=== PATIENT | female | born 1990 | race Caucasian/White ===

== ENCOUNTER 2016-12-04 10:17 | Inpatient (IN) | payer BC ==
[2016-12-04] MEDS ORDERED: Zolpidem 5 MG Tab PO PRN (12:40)
[2016-12-04] MEDS ORDERED: Acetaminophen 325 MG Tab PO PRN (12:40)
[2016-12-04] MEDS ORDERED: Sodium Chloride 0.9% 10 ML Syringe FLUSH PRN (12:40)
[2016-12-04] MEDS ORDERED: Lactated Ringers 500 ML IV ONE (12:43)
[2016-12-04] MEDS ORDERED: Methylergonovine 0.2 MG/1 ML Amp IM PRN (12:43)
[2016-12-04] MEDS ORDERED: Misoprostol 400 MCG (4 X 100 MCG TAB) RECTAL PRN (12:43)
[2016-12-04] MEDS ORDERED: Lidocaine 1% 30 ML SDV INJECT PRN (12:43)
[2016-12-04] MEDS ORDERED: Carboprost Tromethamine 250 MCG/1 ML Amp IM PRN (12:43)
[2016-12-04] MEDS: Misoprostol 25 MCG (1/4 of 100 MCG) Tab VAG PRN ×2 (13:09→17:51)
[2016-12-04] MEDS ORDERED: hydrOXYzine HCl 25 MG Tab PO ONE (21:13)
[2016-12-04] MEDS: Sertraline 50 MG Tab PO SCH (22:35)
[2016-12-05] MEDS: Lactated Ringers 1,000 ML IV SCH ×3 (08:22→21:38)
[2016-12-05] MEDS: Oxytocin/Normal Saline 30 UNIT/500 ML BAG IV SCH (08:26)
[2016-12-05] MEDS: fentaNYL 100 MCG/2 ML SDV IVPUSH PRN (12:42)
--- NOTE | 2016-12-05 13:48 | PN ---
DATE: 12/05/2016 SUBJECTIVE: A 26-year-old 1, para 0, currently at 40 and 5/7th weeks gestation in for induction of labor because of postdates, received 2 doses of Cytotec, but we could not place the third because of the frequency of contractions, so low-dose Pitocin was started and has been at 6 for about 3 hours. The patient is reporting that the pain with contractions is significantly worse and requesting something for pain. OBJECTIVE: Vital signs: Currently, stable. She is afebrile. Baseline heart rate 140 beats per minute. Moderate skku-qi-yuzj variability. Accelerations noted. [place] showing contractions about every 2.5 minutes. Cervix examined 3+ cm dilated, 90% effaced, -2 station. Bag of water remains intact, and she is doing well. ASSESSMENT: 1. A 40 and 5/7th weeks gestation inducing labor. 2. Anxiety with panic attacks. 3. Hyperlipidemia. 4. History of menorrhagia. 5. Pityriasis versicolor. 6. Severe needle phobia. 7. Rh-negative status. 8. Bacterial vaginosis treated in the first trimester. PLAN: At this time, the patient will be given 50 mcg of fentanyl for pain management and we will see how that goes. Next dose may also be 50 or possibly 100 depending on progress and pain at that time. We will provide intrathecal when appropriate. The patient's questions have been answered. [facility] /[id number]
[2016-12-05] MEDS ORDERED: Nalbuphine 10 MG/1 ML Vial IM ONE (14:31)
[2016-12-05] MEDS ORDERED: fentaNYL 100 MCG/2 ML SDV ITHECAL ONE (16:21)
[2016-12-05] MEDS ORDERED: Sertraline 50 MG Tab PO SCH (21:00)
[2016-12-05] MEDS: Ondansetron 4 MG/2 ML SDV IV PRN (22:00)
[2016-12-05] MEDS ORDERED: ePHEDrine 50 MG/ML SDV IVPUSH ONE ×2 (22:35→22:41)
[2016-12-05] MEDS ORDERED: Oxytocin/Normal Saline 30 UNIT/500 ML BAG IV SCH (22:45)
--- NOTE | 2016-12-05 23:26 | PCM.SN ---
- Free Text/Narrative Note: Called in to provide labor analgesia for this patient. Intrathecal placed after labs and VS reviewed. With patient in sitting position, sterile prep/ drape. Skin wheal with 1% lido at L3-4. LP X 2 at L3-4 with 24gauge pencan spinal needle. Positive CSF, no heme, no paresthesia. Then .6mg mpf hyperbaric 0.75% spinal marcaine, plus 10mcg fentanyl, plus 10mcg sufena intrathecal - mixed with 1.8ml preservative free NS. Block/analgesia to around T-10, pt stated she was comfortable with subsequent contractions. B/P dropped after placement, and FHT dropped, so patient placed in ISMAEL, and fluid bolus given and then 10mg ephedrine iv given with fluid bolus. FHT and B/ P responded, but still slightly low (SB/P around 80, FHT's in low 100's), so 5 more MG of ephedrine given. Pt SBP then increased to around 100, and FHT's increased to around 130's.
--- NOTE | 2016-12-06 00:24 | PN ---
DATE: 12/06/2016 SUBJECTIVE: The patient is currently doing well and comfortable with her intrathecal resting on her side at this time and denies any acute concerns. She has not had much in the way of leakage of fluid. Nurses report they checked her after her intrathecal and she has progressed and were thinking that she was 8 to 9 cm; however, admits that this was on her side, and since we have a nurse is still on orientation, the patient and nurse were both agreeable to verification check. OBJECTIVE: Vital Signs: Blood pressure has been elevated in the 140s and even 150s systolic for couple of readings and gradually improved at this time. Pulse of 89. O2 saturations 100% on room air. Cervix re-examined, and it is about 90% effaced, 7 to 8 cm dilated, bulging bag of water intact. Bloody show noted with some mild stretching of the cervix and artificial rupture of membranes performed with return of copious amounts of clear fluid. Amniotomy was performed after discussion with the patient and her , and she was agreeable to the procedure. ASSESSMENT: 1, para 0, currently at 40 and 5/7th weeks' gestation admitted for induction of labor for post-dates . Currently in active labor being augmented with Pitocin at this time after induction of the Cytotec status post artificial rupture and doing well. PLAN: Continue active labor management and anticipate vaginal delivery. [facility] /[id number] MTDD
[2016-12-06] MEDS: Sertraline 50 MG Tab PO SCH (01:57)
[2016-12-06] MEDS: fentaNYL 100 MCG/2 ML SDV IVPUSH PRN (03:03)
--- NOTE | 2016-12-06 03:18 | PN ---
DATE: 12/04/2016 SUBJECTIVE: Currently 40-6/7 weeks postdates , 1, para 0. Started off with induction and Cytotec, followed by Pitocin. She made it to 5+ cm dilated and intrathecal was provided. She was rechecked after the intrathecal and was felt to be 7-8 cm when checked on her side, and reporting now that she is starting to feel her contractions again, still has a good effect at the perineum. Nurses checked her again hoping that she was complete and she is actually unchanged. OBJECTIVE: The patient reports feeling the contractions again and also complaining mostly of low back pain, not feeling much more in the way of increased pelvic pressure. Certainly not feel any urge to push. heart tones are tracing with a baseline of about 160, moderate byek-dt-fmeu variability. Some accelerations were noted. The Birney was tracing contractions about every 2 minutes. Cervix does remain at 7 cm dilated. Baby's head is at 0 to -1 and the baby's head could be felt rotating quite easily and is not as well applied to the cervix as I would like to see it. Bladder has not been emptied since before her intrathecal. Discussed indications, risks, and benefits of IUPC. After questions answered IUPC placed without difficulty. No complications. ASSESSMENT: A 40-6/7 weeks' intrauterine , not making progress beyond 7 cm at this time. Also starting to develop baseline tachycardia and IUPC now placed. PLAN: At this time, we will empty her bladder and we will check her MVUs and see if she is a candidate to continue with labor or if we need to proceed with primary low transverse section. I did verbally consent the patient for , and I had also discussed placement of the IUPC with her before the procedure was performed. We will be watching carefully and adjusting the plan as needed. The patient's questions were answered, and when we did have the discussion regarding , her mother and were also present in the room. [facility] /[id number] MTDD
[2016-12-06] MEDS: Ondansetron 4 MG/2 ML SDV IV PRN (03:21)
[2016-12-06] MEDS: Lactated Ringers 1,000 ML IV SCH ×2 (03:25→04:13)
[2016-12-06] MEDS ORDERED: fentaNYL 100 MCG/2 ML SDV ONE ×2 (03:46→16:18)
[2016-12-06] MEDS ORDERED: Morphine PF 5 MG/10 ML SDV ONE ×2 (03:47→16:18)
[2016-12-06] MEDS ORDERED: Ondansetron 4 MG/2 ML SDV ONE (03:47)
[2016-12-06] MEDS ORDERED: Ketorolac 30 MG/ML SDV ONE (03:48)
[2016-12-06] MEDS ORDERED: Phenylephrine 1% 10 MG/ML SDV ONE ×3 (03:48→03:51)
[2016-12-06] MEDS ORDERED: ePHEDrine 50 MG/ML SDV ONE (03:48)
[2016-12-06] MEDS ORDERED: ceFAZolin 2 GM in Premix Bag 1 BAG IV ONE (03:50)
[2016-12-06] MEDS ORDERED: Citric Acid/Sodium Citrate Solution 30 ML Cup PO ONE (03:50)
[2016-12-06] MEDS ORDERED: Oxytocin/Normal Saline 30 UNIT/500 ML BAG ONE ×2 (04:01→04:12)
[2016-12-06] MEDS ORDERED: Oxytocin 10 Units/1 ML SDV ONE ×2 (04:12→04:13)
--- NOTE | 2016-12-06 04:15 | PN ---
DATE: 12/06/2016 SUBJECTIVE: The patient is very uncomfortable with her contractions at this point, also reporting increased pelvic pressure and perineal pain, requesting more for pain medications. Nurses called me to Labor and Delivery because of a deceleration of the baby's heart rate down from the baseline of the 160s with heart rate coming down to the 120s but maintaining good variability. IU is showing MVU's currently at around 200. OBJECTIVE: Vital signs have been good. However, the patient now has a temperature of approximately 101 and also having some intermittent late decelerations. I rechecked the patient's cervix and it is still the same without any significant change. Baby's head has a lot of movement. We were in the process of planning a second intrathecal. However, with the decelerations, tachycardia, maternal temperature, and no significant change and now achieving adequate MVU's, it is clear that this is not going to result in successful vaginal delivery. Therefore, we will need to deliver by section. With the patient's mother and in the room earlier this morning, I had discussed the indications, risks, benefits, and alternatives of primary low transverse section including but not limited to, risk of bleeding to the point of requiring a blood transfusion as well as its inherent risks, including, but not limited to, transfusion reaction, contraction of blood-borne diseases such as HIV or hepatitis C, and other such complications. Also, discussed risk of infection and plan for preoperative antibiotics, risk of injury to any internal organs and adjacent structures including, but not limited to, large blood vessels, nerves, veins, muscles, fallopian tubes, ovaries, intestines, bladder, uterus, any potential injury to the baby, potential for complications which would require transfer to a tertiary level of care, also remote risk of . They had her questions answered and are going to proceed at this time. ASSESSMENT: 1. A 40-6/7th weeks intrauterine , in active labor after induction. 2. Failure to progress at 7 cm dilated. 3. Maternal fever, new onset. 4. Intermittent late decelerations. PLAN: As outlined above, we are planning to proceed with primary low transverse section. [facility] /[id number]
[2016-12-06] MEDS ORDERED: Bupivacaine 0.25% 10 ML SDV INJECT ONE (06:00)
[2016-12-06] MEDS ORDERED: Bupivacaine 0.25% 10 ML SDV ONE (06:03)
[2016-12-06] MEDS ORDERED: Naloxone 2 MG/2 ML Syringe IVPUSH PRN (06:14)
[2016-12-06] MEDS ORDERED: Docusate Sodium 100 MG Cap PO PRN (06:14)
[2016-12-06] MEDS ORDERED: Acetaminophen/oxyCODONE 325-5 MG Tab PO PRN (06:14)
[2016-12-06] MEDS ORDERED: Lactated Ringers 1,000 ML IV SCH (06:15)
[2016-12-06] MEDS: Oxytocin/Normal Saline 30 UNIT/500 ML BAG IV SCH (06:39)
[2016-12-06] MEDS ORDERED: Prenatal Multivitamin with Calcium/Folic Acid/Iron Tab PO SCH (09:00)
--- NOTE | 2016-12-06 12:01 | OR ---
DATE: 12/06/2016 PREOPERATIVE DIAGNOSES: 1. A 40 and 6/7th weeks intrauterine based on LMP and 20-week ultrasound. 2. 1, para 0. 3. Blood type O negative. 4. Rubella immune. 5. Group B strep negative. 6. Abnormal 1-hour glucose tolerance test, and normal 3 hour. 7. Post-dates . 8. Anxiety with panic. 9. Pityriasis versicolor. 10.Bacterial vaginosis, treated in first trimester. 11.Severe needle phobia. 12.Hyperlipidemia. 13.Metrorrhagia. 14.Intermittent heart rate decelerations. 15.Arrest of dilatation despite adequate MVU. POSTPROCEDURE DIAGNOSES: 1. A 40 and 6/7th weeks intrauterine based on LMP and 20-week ultrasound. 2. 1, now para 1. 3. Blood type O negative. 4. Rubella immune. 5. Group B strep negative. 6. Abnormal 1-hour glucose tolerance test, and normal 3 hour. 7. Post-dates . 8. Anxiety with panic. 9. Pityriasis versicolor. 10.Bacterial vaginosis, treated in first trimester. 11.Severe needle phobia. 12.Hyperlipidemia. 13.Metrorrhagia. 14.Intermittent heart rate decelerations. 15.Arrest of dilation despite adequate MVUs. 16.Status post primary low transverse section without complications. PROCEDURE PERFORMED: Primary low transverse section with double-layer closure. The patient is a candidate. BRIEF HISTORY: The patient is a 26-year-old, admitted to the hospital on 12/04/2016 for induction of labor which was carried out successfully with Cytotec for cervical ripening followed by a low-dose Pitocin initiated as necessary to continue with labor. She did quite well, and had an intrathecal at 5 cm and at 2 hours had started to feel more pain, was checked and she was 7 cm. Intrauterine pressure catheter was placed, two hours later, her cervix remained unchanged. We were starting to see a little bit of heart rate decelerations and IUPC was measuring adequate MVU. Decided at that time that she had arrest of stage I, and needed to proceed with primary low transverse section. After consent was obtained this was carried out with details as below. Her labor course was uncomplicated as was her . See admission history and physical and progress notes for full details. CONSENT: Discussed with the patient, her , and mother indications risks, benefits, and alternatives of primary low transverse section for safe delivery of the baby. Discussed risk of blood transfusion as well as its inherent risks, including possible transfusion reaction, contraction of blood- borne diseases such as hepatitis C, or HIV. Discussed risk of infection, plan for preoperative antibiotics, risk of injury to any internal organs and adjacent structures including, but not limited to, large blood vessels, nerves, veins, vessels, muscles, intestines, uterus, bladder, fallopian tubes, ovaries, and even potential injury to the baby, also potential for complications that would require mother and/or baby to be transferred to a tertiary center and even remote risk of . They agreed to proceed and appropriate consent form was signed and is in the chart. SURGEON: Dr. Edna Vaughn. FURNACE CHARGING MACHINE OPERATOR: Dr. Chon Hendrickson. DETAILS: The patient was brought down to the operating room and spinal anesthesia was obtained with some difficulty. While in the room I witnessed at least 4 attempts to gain acces to the appropriate space. She was then laid supine and appropriately prepped and draped in sterile fashion. She was still able to move her feet however, skin was tested and we had adequate anesthesia, so Pfannenstiel skin incision was made with scalpel at 05:38 a.m. and carried down with cautery and blunt traction to the level of the fascia. The fascia was incised in the midline with Bovie cautery and extended that incision bilaterally with Morfin scissors. Rectus muscles were in the midline with blunt finger dissection and peritoneal cavity entered with blunt finger dissection and traction applied to open up the space. Jeremi O retractor was then placed and appropriate location for low transverse uterine incision determined and uterine incision made at 05:43 a.m. with scalpel until there were just a few cell layers left which were then penetrated with blunt finger penetration. Hysterotomy site opened with Rosen method and infant was noted to be face presenting through the hysterotomy site, OP position. 's head was brought up to the hysterotomy site and baby delivered gently there after. The baby's delivery time was 05:44 a.m. Infant's mouth and nose were bulb suctioned. Three-vessel umbilical cord was doubly clamped and cut and baby taken to the warmer for further evaluation. Cord blood sample was then obtained and placenta delivered by gentle cord traction and concomitant uterine massage at 05:47 a.m. The uterus was cleared of all clots and debris with dry lap sponge. Hysterotomy site closed with 0 Vicryl in a running, continuous fashion and then a second layer of 0 Vicryl with an imbricating fashion was then placed. Excellent hemostasis was noted. Jeremi O was then removed and pericolic gutters were cleared of all clots and debris. Hysterotomy site reinspected and remained hemostatic. The peritoneal layer was closed with a running stitch of 0 Vicryl which was available. At that time, I was called away to attend to the baby in the nursery and Dr. Hendrickson assumed care of the case. He has reported off to me that he irrigated that next layer and then closed the fascia using 2 individual stitches of 1-0 Vicryl, one running stitch on the right side, and one running stitch on the left side for additional reinforcement. He then copiously irrigated the subcutaneous tissues and suctioned out any excess fluid and then reapproximated the subcutaneous with 3-0 chromic suture. He then injected the subcutaneous tissues with 20 mL of 0.25% Marcaine and closed the skin with yadiel. The patient tolerated the procedure well. There were no complications and she will be taken to the PACU for recovery. FLUIDS: 600 mL of lactated Ringer's, and 400 mL of normal saline with Pitocin. ESTIMATED BLOOD LOSS: 600 mL. URINE OUTPUT: 250 mL of clear yellow urine. FINDINGS: Viable male infant, weighing 8 pounds, 12 ounces, 3975 g. Head and chest circumference each 14.5 inches. Baby's scores were 9, 6, and 9. Baby needed to be taken to the nursery for further resuscitative efforts because of lack of sufficient breathing. Heart rate and all other exam findings remained normal, and the lungs were clear. Ultimately baby will be transferred to the Intensive Care nursery. [facility] /[id number] MIREYA
[2016-12-06] MEDS: Ketorolac 30 MG/ML SDV IVPUSH SCH ×2 (13:57→20:09)
[2016-12-06] MEDS: Ferrous Sulfate 325 MG Tab PO SCH ×3 (13:57→20:57)
[2016-12-06] MEDS: Prenatal Multivitamin with Calcium/Folic Acid/Iron Tab PO SCH (13:57)
[2016-12-06] MEDS ORDERED: fentaNYL 100 MCG/2 ML SDV ITHECAL ONE (14:22)
[2016-12-06] MEDS ORDERED: Oxytocin/Normal Saline 30 UNIT/500 ML BAG IV ONE (16:15)
[2016-12-06] MEDS ORDERED: ePHEDrine 50 MG/ML SDV IV ONE (16:18)
[2016-12-06] MEDS ORDERED: Phenylephrine 1% 10 MG/ML SDV IV ONE (16:18)
[2016-12-06] MEDS ORDERED: Ondansetron 4 MG/2 ML SDV IV ONE (16:18)
[2016-12-06] MEDS ORDERED: Ketorolac 30 MG/ML SDV IVPUSH ONE (16:18)
[2016-12-06] MEDS: Acetaminophen/oxyCODONE 325-5 MG Tab PO PRN (16:47)
[2016-12-06] MEDS: Simethicone 80 MG Tab.Chew PO PRN (20:15)
[2016-12-07] MEDS: Sertraline 50 MG Tab PO SCH (00:07)
[2016-12-07] MEDS: Simethicone 80 MG Tab.Chew PO PRN ×4 (00:11→18:08)
[2016-12-07] MEDS: Acetaminophen/oxyCODONE 325-5 MG Tab PO PRN ×5 (00:11→18:07)
[2016-12-07] MEDS: Ketorolac 30 MG/ML SDV IVPUSH SCH (02:12)
[2016-12-07] MEDS: Ferrous Sulfate 325 MG Tab PO SCH (09:27)
[2016-12-07] MEDS: Prenatal Multivitamin with Calcium/Folic Acid/Iron Tab PO SCH (09:27)
[2016-12-07 09:41] VITALS: BP 120/58
[2016-12-07] MEDS: Ibuprofen 800 MG Tab PO PRN ×2 (10:08→18:07)
--- NOTE | 2016-12-07 14:32 | DISCH ---
DATE: 12/07/2016 SUBJECTIVE: The patient was seen on 12/07/2016 at [facility]. The patient is postoperative day #1 from a primary for failure to progress and non-reassuring heart tones. The patient is doing well. She is already eating, voiding, and ambulating. The patient's is in the NICU in [place]. OBJECTIVE: Vital Signs: The patient is afebrile, heart rate 69 to 92, blood pressure 106 to 126 over 52 to 72, and respiratory rate 16 to 20. Abdomen: Benign. Extremities: No tenderness. No edema. The patient is O negative. Her baby is also Rh negative. The patient is rubella immune. The patient's hemoglobin prior to her was 12.6, this morning is 10.5; white count good at 13.4, and platelets are 204. She will remove her bandage in the shower later this morning. ASSESSMENT AND PLAN: Postoperative day #1, status post primary low-transverse C- section. The patient is recovering very well from her . I did explain to the patient that if she has met all criteria and is stable by this evening, we might discharge her, so she could go to [place] to be with her infant. [facility] /[id number]
--- NOTE | 2016-12-07 17:15 | PCM.SN ---
- Free Text/Narrative Note: Post Anesthesia Note: Post op day 1, s/p C/S. Pt with minor c/o back irritation/pain from spinal placement. Otherwise, no c/o pain, no c/o PDPH. Suzie p.o.'s well, no c/o PONV. VSS; Temp 36.8 C, HR 92, 120/58, 98%, RR 16. No post anesthesia complications noted.
== END 2016-12-07 19:45 | disposition home or self-care (01) | DRG 540 ==
LOC: DL.OB 10:17 → DL.MS 12-06 04:00 → OBSVTOIN 12-06 05:44 → EDSTATUS 12-15 10:13
PROVIDERS: ADMIT Family Medicine; ATTEND Family Medicine
PROC: 10907ZC Drainage of Amniotic Fluid, Therapeutic from Products of Conception, Via Natural or Artificial Opening (ICD-10-PCS; principal; 2016-12-06)
PROC: 3E033VJ Introduction of Other Hormone into Peripheral Vein, Percutaneous Approach (ICD-10-PCS; principal; 2016-12-06)
PROC: 10D00Z1 Extraction of Products of Conception, Low, Open Approach (ICD-10-PCS; principal; 2016-12-06)
PROC: 3E0P7GC Introduction of Other Therapeutic Substance into Female Reproductive, Via Natural or Artificial Opening (ICD-10-PCS; 2016-12-06)
DX: O62.0 Primary inadequate contractions (principal); O76 Abnormality in fetal heart rate and rhythm complicating labor and delivery; O75.2 Pyrexia during labor, not elsewhere classified; O48.0 Post-term pregnancy; Z3A.40 40 weeks gestation of pregnancy; Z37.0 Single live birth; F41.9 Anxiety disorder, unspecified; F41.0 Panic disorder [episodic paroxysmal anxiety]; B36.0 Pityriasis versicolor
CPT/HCPCS: 36415; 59025; 85027; 86850; 86900; 86901; A9270-GY; J0690; J1885; J2274; J2300; J2370; J2405; J2590; J3010; J7120

== ENCOUNTER 2018-11-27 05:55 | Inpatient (IN) | payer BC ==
[2018-11-27] MEDS ORDERED: Lactated Ringers 1,000 ML IV SCH ×2 (06:00→09:37)
[2018-11-27] MEDS ORDERED: Oxytocin/Normal Saline 30 UNIT/500 ML BAG IV SCH (06:00)
[2018-11-27] MEDS ORDERED: ceFAZolin 2 GM in Premix Bag 1 BAG IV ONE (06:00)
[2018-11-27] MEDS ORDERED: Tranexamic Acid 1,000 MG in Sodium Chloride 0.9% 100 ML IV PRN ×2 (06:00→09:37)
[2018-11-27] MEDS ORDERED: Citric Acid/Sodium Citrate Solution 30 ML Cup PO ONE (06:00)
[2018-11-27] MEDS ORDERED: Sodium Chloride 0.9% 10 ML Syringe FLUSH PRN (06:00)
[2018-11-27] MEDS: Lactated Ringers 1,000 ML IV SCH ×2 (06:21→07:25)
[2018-11-27] MEDS ORDERED: Oxytocin/Normal Saline 60 UNIT/1,000 ML BAG ONE (06:55)
[2018-11-27] MEDS ORDERED: hydrOXYzine HCl 25 MG Tab PO STA (07:26)
[2018-11-27] MEDS ORDERED: Carboprost Tromethamine 250 MCG/1 ML Amp IM ONE (09:37)
[2018-11-27] MEDS ORDERED: Acetaminophen/oxyCODONE 325-5 MG Tab PO PRN ×2 (09:37→10:30)
[2018-11-27] MEDS ORDERED: Methylergonovine 0.2 MG/1 ML Amp IM PRN (09:37)
[2018-11-27] MEDS ORDERED: ePHEDrine 50 MG/ML SDV IVPUSH PRN (09:37)
[2018-11-27] MEDS ORDERED: Acetaminophen 325 MG Tab PO PRN (09:37)
[2018-11-27] MEDS ORDERED: diphenhydrAMINE 50 MG/ML SDV IVPUSH PRN (09:37)
[2018-11-27] MEDS ORDERED: Ondansetron 4 MG/2 ML SDV IV PRN (09:37)
[2018-11-27] MEDS ORDERED: Misoprostol 400 MCG (4 X 100 MCG TAB) RECTAL PRN (09:37)
[2018-11-27] MEDS ORDERED: Naloxone 2 MG/2 ML Syringe IVPUSH PRN (09:37)
[2018-11-27] MEDS ORDERED: Morphine PF 1 MG/ML Amp ONE (13:14)
[2018-11-27] MEDS ORDERED: ePHEDrine 50 MG/ML SDV IV ONE (13:14)
[2018-11-27] MEDS ORDERED: Ondansetron 4 MG/2 ML SDV IV ONE (13:14)
[2018-11-27] MEDS ORDERED: Dexamethasone 4 MG/ML SDV IV ONE (13:14)
[2018-11-27] MEDS ORDERED: Lactated Ringers 1,000 ML IV ONE (13:14)
[2018-11-27] MEDS ORDERED: Oxytocin/Normal Saline 30 UNIT/500 ML BAG IV ONE (13:17)
[2018-11-27] MEDS: Simethicone 80 MG Tab.Chew PO SCH ×3 (14:30→20:38)
[2018-11-27] MEDS ORDERED: Ketorolac 30 MG/ML SDV IVPUSH SCH (14:30)
[2018-11-27] MEDS: Ketorolac 30 MG/ML SDV IM SCH ×2 (14:33→20:39)
[2018-11-27] MEDS: busPIRone 5 MG Tab PO SCH (20:38)
[2018-11-27] MEDS: Sertraline 50 MG Tab PO SCH (20:38)
[2018-11-27] MEDS: Docusate Sodium 100 MG Cap PO PRN (20:38)
[2018-11-28] MEDS: Ketorolac 30 MG/ML SDV IM SCH (04:03)
[2018-11-28] MEDS: Simethicone 80 MG Tab.Chew PO SCH ×5 (08:04→21:18)
[2018-11-28] MEDS: busPIRone 5 MG Tab PO SCH ×2 (08:04→21:18)
[2018-11-28] MEDS: Prenatal Multivitamin with Calcium/Folic Acid/Iron Tab PO SCH (08:05)
[2018-11-28] MEDS: Docusate Sodium 100 MG Cap PO PRN ×2 (08:09→21:18)
--- NOTE | 2018-11-28 09:49 | PCM.PNPP ---
- General Info Date of Service: 11/28/18 (PPD/POD # 1 S/ P Repeat LTC/S) Functional Status: Reports: Pain Controlled, Tolerating Diet, Ambulating, Urinating - Review of Systems General: Reports: No Symptoms HEENT: Reports: No Symptoms Pulmonary: Reports: No Symptoms Cardiovascular: Reports: No Symptoms Gastrointestinal: Reports: No Symptoms Genitourinary: Reports: No Symptoms Musculoskeletal: Reports: No Symptoms Skin: Reports: No Symptoms Neurological: Reports: No Symptoms Psychiatric: Reports: No Symptoms - General Info Date of Service: 11/28/18 (PPD/POD # 1 S/P Repeat LTC/S) - Patient Data Vital Signs - Most Recent: Last Vital Signs Temp 97.9 F 11/28/18 04:00 Pulse 78 11/28/18 04:00 Resp 16 11/28/18 04:00 BP 121/63 11/28/18 04:00 Pulse Ox 95 11/27/18 09:47 Weight - Most Recent: 252 lb I&O - Last 24 Hours: Intake & Output 11/27/18 11/28/18 11/28/18 22:59 06:59 14:59 Intake Total 580 1280 Output Total 5453 294 0681 Balance -1040 -900 -70 Lab Results - Last 24 Hours: Laboratory Results - last 24 hr 11/28/18 Range/Units 06:00 WBC 11.9 H (5.0-10.0) 10^3/uL RBC 3.71 L (4.2-5.4) 10^6/uL Hgb 10.3 L D (12.0-16.0) g/dL Hct 32.2 L (37.0-47.0) % MCV 86.8 (80-100) fL MCH 27.8 (27.0-34.0) pg MCHC 32.0 L (33.0-35.0) g/dL Plt Count 239 (150-450) 10^3/uL Med Orders - Current: Current Medications Acetaminophen (Tylenol) 650 mg PO Q6HR PRN PRN Reason: mild pain or fever Buspirone HCl (Buspar) 5 mg PO BID FELIPE Last Admin: 11/28/18 08:04 Dose: 5 mg Diphenhydramine HCl (Benadryl) 25 mg IVPUSH Q6HR PRN PRN Reason: Itching or Nausea Docusate Sodium (Colace) 100 mg PO Q12HR PRN PRN Reason: Constipation Last Admin: 11/28/18 08:09 Dose: 100 mg Ephedrine Sulfate (Ephedrine Sulfate) 5 mg IVPUSH SEECOMMENT PRN PRN Reason: Other Ferrous Sulfate (Ferrous Sulfate) 325 mg PO BIDMEALS [facility] Tranexamic Acid 1,000 mg/ (Sodium Chloride) 110 mls @ 660 mls/hr IV ONETIME PRN PRN Reason: Bleeding Oxytocin/Sodium Chloride (Pitocin In Ns 30 Unit/500 Ml) 30 unit in 500 mls @ 500 mls/hr IV TITRATE FELIPE; Protocol Last Titration: 11/27/18 12:00 Dose: 0 mls/hr Lactated Ringer's (Ringers, Lactated) 1,000 mls @ 125 mls/hr IV ASDIRECTED FELIPE Last Admin: 11/27/18 07:25 Dose: 125 mls/hr Lactated Ringer's (Ringers, Lactated) 1,000 mls @ 500 mls/hr IV .BOLUS [facility] Ibuprofen (Motrin) 800 mg PO Q8H PRN PRN Reason: mild pain or fever Methylergonovine Maleate (Methergine) 0.2 mg IM ONETIME PRN PRN Reason: Excessive Vaginal Bleeding Misoprostol (Cytotec) 800 mcg RECTAL ASDIRECTED PRN PRN Reason: Excessive bleeding Naloxone HCl (Narcan) 0.1 mg IVPUSH SEECOMMENT PRN PRN Reason: Respiratory Depression Ondansetron HCl (Zofran) 4 mg IV Q4HR PRN PRN Reason: Nausea/Vomiting Oxycodone/Acetaminophen (Percocet 325-5 Mg) 1 tab PO Q4HR PRN PRN Reason: Pain (moderate 4-6) Oxycodone/Acetaminophen (Percocet 325-5 Mg) 2 tab PO Q4HR PRN PRN Reason: Pain (severe 7-10) Prenat Multivit/[place]/Iron/Folic Ac ( Plus Iron) 1 each PO DAILY [facility] Last Admin: 11/28/18 08:05 Dose: 1 each Sertraline HCl (Zoloft) 50 mg PO BEDTIME [facility] Last Admin: 11/27/18 20:38 Dose: 50 mg Simethicone (Simethicone) 160 mg PO QID [facility] Last Admin: 11/28/18 08:04 Dose: 160 mg Sodium Chloride (Saline Flush) 10 ml FLUSH ASDIRECTED PRN PRN Reason: Keep Vein Open Discontinued Medications Carboprost Tromethamine (Hemabate Ds) 250 mcg IM ONETIME ONE Stop: 11/27/18 09:38 Last Admin: 11/27/18 12:03 Dose: Not Given Citric Acid/Sodium Citrate (Bicitra Solution) 30 ml PO ONETIME ONE Stop: 11/27/18 06:01 Last Admin: 11/27/18 07:24 Dose: 30 ml Dexamethasone (Dexamethasone) 8 mg IV .STK-MED ONE Stop: 11/27/18 13:15 Ephedrine Sulfate (Ephedrine Sulfate) 20 mg IV .STK-MED ONE Stop: 11/27/18 13:15 Hydroxyzine HCl (Atarax) 25 mg PO ONETIME STA Stop: 11/27/18 07:27 Last Admin: 11/27/18 07:30 Dose: 25 mg Cefazolin Sodium/Dextrose 2 gm (/ Premix) 50 mls @ 100 mls/hr IV ONETIME ONE Stop: 11/27/18 06:29 Last Admin: 11/27/18 07:14 Dose: 100 mls/hr Oxytocin/Sodium Chloride (Pitocin In Ns 30 Unit/500 Ml) Confirm Administered Dose 60 unit in 1,000 mls @ as directed .ROUTE .STK-MED ONE Stop: 11/27/18 06:56 Lactated Ringer's (Ringers, Lactated) 1,000 mls @ as directed IV .STK-MED ONE Stop: 11/27/18 13:15 Oxytocin/Sodium Chloride (Pitocin In Ns 30 Unit/500 Ml) 30 unit in 500 mls @ as directed IV .STK-MED ONE Stop: 11/27/18 13:18 Ketorolac Tromethamine (Toradol) 15 mg IVPUSH Q6H [facility] Stop: 11/28/18 02:31 Ketorolac Tromethamine (Toradol) 15 mg IM Q6H [facility] Stop: 11/28/18 02:31 Last Admin: 11/28/18 04:03 Dose: 15 mg Morphine Sulfate (Duramorph Pf) 0.2 mg .XX .STK-MED ONE Stop: 11/27/18 13:15 Ondansetron HCl (Zofran) 4 mg IV .STK-MED ONE Stop: 11/27/18 13:15 Oxycodone/Acetaminophen (Percocet 325-5 Mg) 2 tab PO Q4H PRN PRN Reason: Pain (severe 7-10) - Interaction Disposition, : in Room with Family Infant Interaction: Holding Infant Feeding: Breastfed ; Nursed Well Support Person: - Recovery Exam Fundal Tone: Firm Fundal Level: At Umbilicus Fundal Placement: Midline Lochia Amount: Small Lochia Color: Rubra/Red Perineum Description: Intact, Minimal Bruising/Swelling Episiotomy/Laceration: None Bladder Status: Voiding Urinary Elimination: Voided - Exam General: Alert, Oriented, Cooperative, No Acute Distress HEENT: Pupils Equal, Pupils Reactive, EOMI, Mucous Membr. Moist/[place] Neck: Supple Lungs: Clear to Auscultation, Normal Respiratory Effort Cardiovascular: Regular Rate, Regular Rhythm, No Murmurs GI/Abdominal Exam: Normal Bowel Sounds, Soft, Non-Tender, No Distention Extremities: Normal Inspection, Normal Range of Motion, Non-Tender, No Pedal Edema Skin: Warm, Dry, Intact Wound/Incisions: Healing Well, No Drainage Neurological: No New Focal Deficit, Normal Gait, Normal Speech Psy/Mental Status: Alert, Normal Affect, Normal Mood - Problem List Review Problem List Initiated/Reviewed/Updated: Yes - My Orders Last 24 Hours: My Active Orders 11/28/18 18:00 Ferrous Sulfate 325 mg PO BIDMEALS - Assessment Assessment:: PPD/POD # 1 S/P Repeat LTC/S Doing well Tolerating diet well Ambulating well Acute anemia secondary to blood loss. - Plan Plan:: Continue present care. Ferrous sulfate 325 mg BID po
[2018-11-28] MEDS: Acetaminophen/oxyCODONE 325-5 MG Tab PO PRN (15:31)
[2018-11-28] MEDS: Ibuprofen 800 MG Tab PO PRN (15:32)
[2018-11-28] MEDS: Ferrous Sulfate 325 MG Tab PO SCH (21:19)
[2018-11-28] MEDS: Sertraline 50 MG Tab PO SCH (21:19)
[2018-11-29] MEDS: Ibuprofen 800 MG Tab PO PRN ×3 (02:42→21:03)
[2018-11-29] MEDS: Acetaminophen/oxyCODONE 325-5 MG Tab PO PRN ×4 (02:42→17:36)
[2018-11-29] MEDS: Simethicone 80 MG Tab.Chew PO SCH ×4 (08:29→21:03)
[2018-11-29] MEDS: Ferrous Sulfate 325 MG Tab PO SCH ×2 (08:29→17:36)
[2018-11-29] MEDS: busPIRone 5 MG Tab PO SCH ×2 (08:29→21:04)
[2018-11-29] MEDS: Prenatal Multivitamin with Calcium/Folic Acid/Iron Tab PO SCH (08:30)
[2018-11-29] MEDS: Docusate Sodium 100 MG Cap PO PRN (08:38)
--- NOTE | 2018-11-29 10:47 | PCM.PNPP ---
- General Info Date of Service: 11/29/18 (PPD/POD # 2 S/P Repeat LTC/S) Functional Status: Reports: Pain Controlled, Tolerating Diet, Ambulating, Urinating - Review of Systems General: Reports: No Symptoms HEENT: Reports: No Symptoms Pulmonary: Reports: No Symptoms Cardiovascular: Reports: No Symptoms Gastrointestinal: Reports: No Symptoms Genitourinary: Reports: No Symptoms Musculoskeletal: Reports: No Symptoms Skin: Reports: No Symptoms Neurological: Reports: No Symptoms Psychiatric: Reports: No Symptoms - General Info Date of Service: 11/29/18 (PPD/POD # 2 S/P Repeat LTC/S) - Patient Data Vital Signs - Most Recent: Last Vital Signs Temp 98.0 F 11/29/18 07:54 Pulse 86 11/29/18 07:54 Resp 18 11/29/18 07:54 BP 122/70 11/29/18 07:54 Pulse Ox 99 11/29/18 07:54 Weight - Most Recent: 252 lb Med Orders - Current: Current Medications Acetaminophen (Tylenol) 650 mg PO Q6HR PRN PRN Reason: mild pain or fever Buspirone HCl (Buspar) 5 mg PO BID [facility] Last Admin: 11/29/18 08:29 Dose: 5 mg Diphenhydramine HCl (Benadryl) 25 mg IVPUSH Q6HR PRN PRN Reason: Itching or Nausea Docusate Sodium (Colace) 100 mg PO Q12HR PRN PRN Reason: Constipation Last Admin: 11/29/18 08:38 Dose: 100 mg Ephedrine Sulfate (Ephedrine Sulfate) 5 mg IVPUSH SEECOMMENT PRN PRN Reason: Other Ferrous Sulfate (Ferrous Sulfate) 325 mg PO BIDMEALS [facility] Last Admin: 11/29/18 08:29 Dose: 325 mg Tranexamic Acid 1,000 mg/ (Sodium Chloride) 110 mls @ 660 mls/hr IV ONETIME PRN PRN Reason: Bleeding Oxytocin/Sodium Chloride (Pitocin In Ns 30 Unit/500 Ml) 30 unit in 500 mls @ 500 mls/hr IV TITRATE [facility]; Protocol Last Titration: 11/27/18 12:00 Dose: 0 mls/hr Lactated Ringer's (Ringers, Lactated) 1,000 mls @ 125 mls/hr IV ASDIRECTED [facility] Last Admin: 11/27/18 07:25 Dose: 125 mls/hr Lactated Ringer's (Ringers, Lactated) 1,000 mls @ 500 mls/hr IV .BOLUS [facility] Ibuprofen (Motrin) 800 mg PO Q8H PRN PRN Reason: mild pain or fever Last Admin: 11/29/18 02:42 Dose: 800 mg Methylergonovine Maleate (Methergine) 0.2 mg IM ONETIME PRN PRN Reason: Excessive Vaginal Bleeding Misoprostol (Cytotec) 800 mcg RECTAL ASDIRECTED PRN PRN Reason: Excessive bleeding Naloxone HCl (Narcan) 0.1 mg IVPUSH SEECOMMENT PRN PRN Reason: Respiratory Depression Ondansetron HCl (Zofran) 4 mg IV Q4HR PRN PRN Reason: Nausea/Vomiting Oxycodone/Acetaminophen (Percocet 325-5 Mg) 1 tab PO Q4HR PRN PRN Reason: Pain (moderate 4-6) Last Admin: 11/29/18 08:30 Dose: 1 tab Oxycodone/Acetaminophen (Percocet 325-5 Mg) 2 tab PO Q4HR PRN PRN Reason: Pain (severe 7-10) Last Admin: 11/28/18 21:19 Dose: 2 tab Prenat Multivit/Lane/Iron/Folic Ac ( Plus Iron) 1 each PO DAILY [facility] Last Admin: 11/29/18 08:30 Dose: 1 each Sertraline HCl (Zoloft) 50 mg PO BEDTIME [facility] Last Admin: 11/28/18 21:19 Dose: 50 mg Simethicone (Simethicone) 160 mg PO QID [facility] Last Admin: 11/29/18 08:29 Dose: 160 mg Sodium Chloride (Saline Flush) 10 ml FLUSH ASDIRECTED PRN PRN Reason: Keep Vein Open Discontinued Medications Carboprost Tromethamine (Hemabate Ds) 250 mcg IM ONETIME ONE Stop: 11/27/18 09:38 Last Admin: 11/27/18 12:03 Dose: Not Given Citric Acid/Sodium Citrate (Bicitra Solution) 30 ml PO ONETIME ONE Stop: 11/27/18 06:01 Last Admin: 11/27/18 07:24 Dose: 30 ml Dexamethasone (Dexamethasone) 8 mg IV .STK-MED ONE Stop: 11/27/18 13:15 Ephedrine Sulfate (Ephedrine Sulfate) 20 mg IV .STK-MED ONE Stop: 11/27/18 13:15 Hydroxyzine HCl (Atarax) 25 mg PO ONETIME STA Stop: 11/27/18 07:27 Last Admin: 11/27/18 07:30 Dose: 25 mg Cefazolin Sodium/Dextrose 2 gm (/ Premix) 50 mls @ 100 mls/hr IV ONETIME ONE Stop: 11/27/18 06:29 Last Admin: 11/27/18 07:14 Dose: 100 mls/hr Oxytocin/Sodium Chloride (Pitocin In Ns 30 Unit/500 Ml) Confirm Administered Dose 60 unit in 1,000 mls @ as directed .ROUTE .STK-MED ONE Stop: 11/27/18 06:56 Lactated Ringer's (Ringers, Lactated) 1,000 mls @ as directed IV .STK-MED ONE Stop: 11/27/18 13:15 Oxytocin/Sodium Chloride (Pitocin In Ns 30 Unit/500 Ml) 30 unit in 500 mls @ as directed IV .STK-MED ONE Stop: 11/27/18 13:18 Ketorolac Tromethamine (Toradol) 15 mg IVPUSH Q6H FELIPE Stop: 11/28/18 02:31 Ketorolac Tromethamine (Toradol) 15 mg IM Q6H FELIPE Stop: 11/28/18 02:31 Last Admin: 11/28/18 04:03 Dose: 15 mg Morphine Sulfate (Duramorph Pf) 0.2 mg .XX .STK-MED ONE Stop: 11/27/18 13:15 Ondansetron HCl (Zofran) 4 mg IV .STK-MED ONE Stop: 11/27/18 13:15 Oxycodone/Acetaminophen (Percocet 325-5 Mg) 2 tab PO Q4H PRN PRN Reason: Pain (severe 7-10) - Interaction Disposition, : in Room with Family Infant Interaction: Holding Feeding: Breastfed Infant; Nursed Well Support Person: - Recovery Exam Fundal Tone: Firm Fundal Level: At Umbilicus Fundal Placement: Midline Lochia Amount: Scant Lochia Color: Rubra/Red Perineum Description: Intact, Minimal Bruising/Swelling Episiotomy/Laceration: None Bladder Status: Voiding Urinary Elimination: Voided - Exam General: Alert, Oriented, Cooperative, No Acute Distress HEENT: Pupils Equal, Pupils Reactive, Mucous Membr. Moist/[place] Neck: Supple Lungs: Clear to Auscultation, Normal Respiratory Effort Cardiovascular: Regular Rate, Regular Rhythm, No Murmurs GI/Abdominal Exam: Normal Bowel Sounds, Soft, Non-Tender, No Distention Extremities: Normal Inspection, Normal Range of Motion, Non-Tender, No Pedal Edema Skin: Warm, Dry, Intact Wound/Incisions: Healing Well, Dressing Dry and Intact, No Drainage Neurological: No New Focal Deficit, Normal Gait Psy/Mental Status: Alert, Normal Affect, Normal Mood - Problem List Review Problem List Initiated/Reviewed/Updated: Yes - My Orders Last 24 Hours: My Active Orders 11/28/18 18:00 Ferrous Sulfate 325 mg PO BIDMEALS - Assessment Assessment:: PPD/POD # 2 S/P Repeat LTC/S Doing well Tolerating diet well Ambulating well Acute anemia secondary to blood loss. - Plan Plan:: Continue present care. Discharge planning for tomorrow
[2018-11-29] MEDS: Sertraline 50 MG Tab PO SCH (21:04)
[2018-11-30] MEDS: Ibuprofen 800 MG Tab PO PRN (06:16)
[2018-11-30] MEDS: Docusate Sodium 100 MG Cap PO PRN (08:34)
[2018-11-30] MEDS: Simethicone 80 MG Tab.Chew PO SCH (08:34)
[2018-11-30] MEDS: Prenatal Multivitamin with Calcium/Folic Acid/Iron Tab PO SCH (08:34)
[2018-11-30] MEDS: busPIRone 5 MG Tab PO SCH (08:34)
[2018-11-30] MEDS: Ferrous Sulfate 325 MG Tab PO SCH (08:34)
--- NOTE | 2018-11-30 10:23 | OR ---
DATE: 11/27/2018 PROCEDURE PERFORMED: Repeat low transverse section. PREOPERATIVE DIAGNOSES: 1. Presentation for repeat low-transverse section. 2. A 39-week 1-day gestation via a 14-week ultrasound. 3. History of section x1. 4. Obesity. 5. Anxiety with panic attacks. 6. Needle phobia. 7. Rubella immune, group B streptococcus negative, O negative. 8. 2, para 1-0-0-1. POSTOPERATIVE DIAGNOSES: 1. Presentation for repeat low-transverse section. 2. A 39-week 1-day gestation via a 14-week ultrasound. 3. History of section x2. 4. Obesity. 5. Anxiety with panic attacks. 6. Needle phobia. 7. Rubella immune, group B streptococcus negative, O negative. 8. 2, para 2-0-0-2. SURGEON: Edna Vaughn MD. FABRIC WORKER LEADER: Rohan Mullen MD. SECOND RIPSAW GRADER: VIC GarciaIII. ANESTHESIA: Spinal. BRIEF HISTORY: A 28-year-old 2, para 1-0-0-1, currently at 39-1/7 weeks of her based on 24-week ultrasound, presents for elective repeat low transverse section. Please review admission history and physical for full details. The patient was given the option of vaginal after and prefers delivery via elective repeat and there are no contraindications. CONSENT: Discussed indications, risks, benefits, and alternatives with the patient and her . Appropriate consent forms have been signed and are on the chart. Discussed potential risk for infection and plan for preoperative antibiotics, potential for blood loss requiring a blood transfusion as well as its inherent risk, risk of injury to any internal organs and adjacent structures including, but not limited to, bowel, bladder, fallopian tubes, uterus, baby, and any other adjacent structures, and now plans to repair those as would be necessary. Discussed potential for complications leading to requirement of transfer for the mother and/or baby to manage those complications. DETAILS: The patient taken to the operating room and spinal anesthesia obtained. She was laid in the dorsal supine position with leftward tilt and Ruby indwelling catheter placed. After that, the patient did have some anxiety about the anesthesia being sufficient. After this was verified, we were allowed to proceed with appropriate prepping of the abdomen and placement of drapes in the usual fashion. A skin incision made in the low Pfannenstiel location at 8:05 a.m. and carried down into the subcutaneous tissue and this was extended using blunt dissection and cautery until the fascia was reached. Fascia incised in the midline with cautery and extended bilaterally with cautery and traction. Superior fascial edge then grasped with Claude's, tented up, and rectus muscles dissected off bluntly and with cautery. Inferior fascial edge then grasped with Claude's, tented up, and also rectus muscles dissected off bluntly and with cautery. Peritoneal cavity scarring was rather thick, so this was entered with hemostat and extended with blunt traction as well as cautery. The Jeremi O retractor was then placed and bladder flap created in the lower uterine segment. The uterus was then incised with a scalpel at 8:17 a.m. and hysterotomy site created using the Rosen method. The infant's head was attempted to be brought up through the hysterotomy site, but there was some difficulty as the head was rather large. Therefore, vacuum assistance called for and baby delivered at 8:19. 's mouth and nose were bulb suctioned. Three-vessel umbilical cord was doubly clamped and cut, and baby taken to the warmer. Cord blood sample then obtained and placenta delivered by cord traction and manual extraction. Uterine cavity then cleared of all clots and debris, and hysterotomy site closed with a running lock stitch of 0 Vicryl in the usual fashion. There was a hematoma noted on the maternal left hand side of the incision that was nonexpanding and not actively bleeding. The Jeremi retractor was then removed and hemostasis of the hysterotomy site verified. Pericolic gutters were cleared of all clots and debris. Hysterotomy site inspected again and remained hemostatic. Hematoma also was not expanding. Therefore, was not further treated. The peritoneal layer was closed with a running stitch of 0 Vicryl. The fascial layer was then irrigated and then closed with a running stitch of 0 looped PDS in the usual fashion. Subcutaneous tissues irrigated and reapproximated using 3-0 chromic. Skin was then closed with a 4-0 Monocryl suture, subcuticular closure with good reapproximation. Incision site was then reinforced with Steri-Strips and Mastisol and pressure dressing applied. Time for surgery was 8:58. COMPLICATIONS: None. ESTIMATED BLOOD LOSS: 500 mL. URINE OUTPUT: 100 mL clear. FLUIDS: 1000 mL of crystalloids. Fluids with Pitocin 500 mL. DISPOSITION: Mother and baby are in good condition. Baby went to the nursery and mother will go to the PACU for further recovery. [facility] /[id number] MIREYA
[2018-11-30 10:39] VITALS: BP 128/64; PULSE 78
--- NOTE | 2018-11-30 12:51 | DISCH ---
ADMITTING DIAGNOSES: 1. Presentation for repeat low-transverse section. 2. A 39-week 1-day gestation via a 14-week ultrasound. 3. History of section x1. 4. Obesity. 5. Anxiety with panic attacks. 6. Needle phobia. 7. Rubella immune, group B streptococcus negative, O negative. 8. 2, para 1-0-0-1. DISCHARGE DIAGNOSES: 1. Presentation for repeat low-transverse section. 2. A 39-week 1-day gestation via a 14-week ultrasound. 3. History of section x1. 4. Obesity. 5. Anxiety with panic attacks. 6. Needle phobia. 7. Rubella immune, group B streptococcus negative, O negative. 8. 2, para 2-0-0-2. BRIEF HISTORY: The patient is a 28-year-old female with the above-listed diagnoses, who presented to Labor and Delivery for elective repeat low transverse section and delivery of term male. The patient underwent section without any concerns. HOSPITAL COURSE: Good. The patient was noted to have acute anemia due to blood loss due to the procedure. The patient is otherwise doing well. Through hospital course, she reported ability to tolerate general diet, ambulate well, normal urination, and did pass first BM on postop day #2 without concerns. The patient is . The patient is working with financial planning consultant and nursing staff for support. The patient denies any headaches, blurred vision, chest pain, shortness of breath, abdominal pain, changes in her lower extremity edema, fevers, or chills. DISCHARGE CONDITION: Good. DISCHARGE PHYSICAL EXAMINATION: Vital Signs: Temperature 97.4, HR 69 bpm, BP 127/80, RR 16 breaths per minute, O2 saturation 98% on room air. General: Awake, alert, in no acute distress. HEENT: Grossly normal. Pulmonary: Lungs are clear to auscultation bilaterally. No increased work of breathing. Cardiovascular: Regular rate and rhythm. No murmurs noted. Abdomen: Soft, nontender, and nondistended. Normoactive bowel sounds. Firm uterus palpated 5 cm below the umbilicus. Incision: Incision clean, dry, and intact. Steri-Strips still in place with moderate amount of dried serosanguineous fluid. No erythema or edema noted along the incision site. No tenderness to palpation. Extremities: No edema or erythema. No tenderness to palpation of calves bilaterally. Neurologic: Grossly normal. LABORATORY DATA: Hematology: WBC 11.9, RBC 3.71, hemoglobin 10.3, hematocrit 32.2, platelet count 239. DISCHARGE MEDICATIONS: 1. Percocet 5/325 mg p.o. q.4-6 hours p.r.n. for pain. 2. Ferrous sulfate 325 mg p.o. b.i.d., 60 tablets total. 3. Colace 100 mg p.o. b.i.d. p.r.n., 60 tablets total. 4. Ibuprofen 800 mg p.o. q.8 hours p.r.n., 30 tablets total. 5. Zoloft 150 mg p.o. daily, 30 tablets total. 6. vitamin p.o. daily, 30 tablets total. 7. Breast pump. DISPOSITION: Home with family. FOLLOWUP: The patient is advised to follow up in clinic with Dr. Edna Montano in 10-14 days. The patient is in agreement with this plan. The patient was seen and evaluated today by myself and Dr. Edna Montano. Discharge evaluation is under advisement of Dr. Montano. [facility] /[id number] Patient seen and examined. Agree with note as scribed on my behalf by Antonia Mario, MS 3. -[facility] 12/01/18 0807. MIREYA
== END 2018-11-30 12:15 | disposition home or self-care (01) | DRG 540 ==
LOC: UNDOADMOB 05:55 → DL.MS 05:55 → OBSVTOIN 08:19 → DL.MS 08:19
PROVIDERS: ADMIT Family Medicine; ATTEND Family Medicine
PROC: 10D00Z1 Extraction of Products of Conception, Low, Open Approach (ICD-10-PCS; principal; 2018-11-27)
DX: O34.211 Maternal care for low transverse scar from previous cesarean delivery (principal); O99.214 Obesity complicating childbirth; O90.81 Anemia of the puerperium; D62 Acute posthemorrhagic anemia; O99.344 Other mental disorders complicating childbirth; E66.01 Morbid (severe) obesity due to excess calories; F41.0 Panic disorder [episodic paroxysmal anxiety]; F40.231 Fear of injections and transfusions; Z3A.39 39 weeks gestation of pregnancy; Z37.0 Single live birth
CPT/HCPCS: 36415; 51702; 59025; 85025; 85027; 86850; 86900; 86901; A9270-GY; J0690; J1100; J1885; J2274; J2405; J2590; J7120

== ENCOUNTER 2019-01-13 18:35 | Emergency (ER) | payer BC ==
[2019-01-13 19:03] VITALS: BP 130/84
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
[2019-01-13 19:41] LABS: ANION GAP 17.4; CHLORIDE,CL 98 mmol/L (101-111); SODIUM,NA 135 mmol/L (135-145)
== END 2019-01-13 20:53 | disposition home or self-care (01) ==
LOC: DL.ED 18:35
DX: R00.2 Palpitations (principal); F41.9 Anxiety disorder, unspecified; E78.5 Hyperlipidemia, unspecified; Z79.899 Other long term (current) drug therapy
CPT/HCPCS: 36415; 80053; 84443; 85025; 93005; 99284-25

== ENCOUNTER 2021-03-08 05:57 | Inpatient (IN) | payer BC, OTHER ==
[2021-03-08] MEDS ORDERED: Citric Acid/Sodium Citrate Solution 30 ML Cup PO ONE (06:00)
[2021-03-08] MEDS ORDERED: Tranexamic Acid 1,000 MG in Sodium Chloride 0.9% 100 ML IV PRN ×2 (06:00→07:34)
[2021-03-08] MEDS ORDERED: Sodium Chloride 0.9% 10 ML Syringe FLUSH PRN (06:00)
[2021-03-08] MEDS ORDERED: Oxytocin/Normal Saline 30 UNIT/500 ML BAG IV SCH (06:00)
[2021-03-08] MEDS ORDERED: Lactated Ringers 1,000 ML IV SCH (06:00)
[2021-03-08] MEDS ORDERED: ceFAZolin 2 GM in Premix Bag 1 BAG IV ONE (06:00)
[2021-03-08] MEDS: Lactated Ringers 1,000 ML IV SCH ×6 (06:25→19:40)
[2021-03-08] MEDS ORDERED: Oxytocin/Normal Saline 60 UNIT/1,000 ML BAG ONE (07:15)
[2021-03-08] MEDS ORDERED: diphenhydrAMINE 50 MG/ML SDV IVPUSH PRN (07:34)
[2021-03-08] MEDS ORDERED: Misoprostol 400 MCG (4 X 100 MCG TAB) RECTAL PRN (07:34)
[2021-03-08] MEDS ORDERED: Acetaminophen/oxyCODONE 325-5 MG Tab PO PRN ×2 (07:34)
[2021-03-08] MEDS ORDERED: Ondansetron 4 MG/2 ML SDV IVPUSH PRN (07:34)
[2021-03-08] MEDS ORDERED: Carboprost Tromethamine 250 MCG/1 ML Amp IM PRN (07:34)
[2021-03-08] MEDS ORDERED: Naloxone 2 MG/2 ML Syringe IVPUSH PRN (07:34)
[2021-03-08] MEDS ORDERED: Methylergonovine 0.2 MG/1 ML Amp IM PRN (07:34)
[2021-03-08] MEDS ORDERED: ePHEDrine 50 MG/ML SDV IVPUSH PRN (07:34)
--- NOTE | 2021-03-08 10:29 | OR ---
DATE: 03/08/2021 PROCEDURE PERFORMED: Repeat low transverse section with vacuum assistance. PREOPERATIVE DIAGNOSES: 1. 39-0/7 weeks intrauterine . 2. History of section x2. 3. Obesity. 4. Anxiety with panic attacks. 5. Needle phobia. 6. Rubella immune, group B strep negative, and blood type O negative. 7. 3, para 2-0-0-2. 8. COVID infection during . POSTOPERATIVE DIAGNOSES: 1. 39-0/7 weeks intrauterine . 2. History of section x2. 3. Obesity. 4. Anxiety with panic attacks. 5. Needle phobia. 6. Rubella immune, group B strep negative, and blood type O negative. 7. 3, now para 3-0-0-3, status post repeat low transverse section with vacuum assistance without complications. 8. COVID infection during . LEAF BLENDER: Dr. Rafeal Rosen. ANESTHESIA: Spinal. BRIEF HISTORY: The patient is a 30-year-old, 3, para 2-0-0-2, currently at 39-0/7 weeks gestation who presents for elective repeat section at term. Please review admission history and physical for full details. CONSENT: Discussed with the patient and her the indications, risks, benefits, and alternatives for planned repeat section at this time. Discussed risk of infection and plan for preoperative antibiotics, expectation of bleeding to the point that it may require blood transfusion as well as its inherent risk, risk of injury to any large blood vessels, nerves, veins, internal organs or adjacent structures including but not limited to, fallopian tubes, ovaries, bladder, intestines, or any other unintended structures, even potential for complications for mother and/or baby that would require transfer to a higher level of care. Her questions were answered and appropriate consent forms are on the chart. DETAILS: The patient was brought to the operating room and spinal anesthesia obtained. She was laid in the dorsal supine position with leftward tilt and Ruby indwelling catheter was placed. After that, abdomen prepped with ChloraPrep and sterile drapes applied in the usual fashion. Skin incision made with scalpel at 8:05 a.m. and carried down through the underlying subcutaneous tissue to the fascia using cautery primarily as well as traction. Fascia incised in the midline with cautery and extended bilaterally, first using cautery and then using Morfin scissors. Superior fascial edge grasped with Claude's, tented up, and rectus muscles dissected off sharply with Morfin scissors. Inferior fascial edge treated in similar fashion. The peritoneal cavity was entered with careful cautery dissection elevating the peritoneal tissue with hemostats. Once I had significant enough opening, further opening was performed with blunt finger traction. Additional cautery was used to open the peritoneal slightly greater until we had sufficient room. The Jeremi retractor was then placed and bladder flap created with Metzenbaum and DeBakey. Uterine incision made with scalpel and clear amniotic fluid noted. This was extended using Rosen method, curving upward at the lateral edges. 's head was brought up to the hysterotomy site, but we were having some difficulty with getting it out fully. Therefore, vacuum assistance was called for and after that the baby's head delivered, followed by the remainder of the infant at 8:16 a.m. 's nose and mouth were bulb suctioned and baby dried and stimulated. Three-vessel umbilical cord was doubly clamped and cut. Baby taken to the warmer. Cord blood sample obtained and placenta delivered by cord traction and concomitant uterine massage, later it was inspected and intact. Uterine cavity was cleared of all clots and debris using dry lap sponge. Hysterotomy site was then closed with a running locked stitch of 0 Vicryl in the usual fashion. Excellent hemostasis was noted, so a 2nd layer was not placed. Jeremi retractor removed and hysterotomy site reinspected, remained hemostatic and area irrigated with fluid clearing out any clots and debris. Pericolic gutters were also cleared of any clots and debris using dry lap sponge. The peritoneal layer brought together using extra stitch of 0 Vicryl with good approximation. The subcutaneous tissues were then irrigated and fascia closed with a running stitch of 0 looped PDS in the usual fashion. Skin edges came together well and space did not need to be closed, so a subcuticular 3-0 Monocryl stitch was used to close the skin edges and then Steri-Strips and Mastisol were placed for reinforcement. End time was 8:49. URINE OUTPUT: 50 mL clear. FLUIDS: 2000 mL of crystalloids, 250 mL Pitocin. ESTIMATED BLOOD LOSS: 600 mL. COMPLICATIONS: None. FINDINGS: Viable female infant, weighing 3400 g, 7 pounds 8 ounces. Length 18- 1/2 inches. Normal internal anatomy for having had 3 C-sections. The scar tissue was rather thick at the fascial layer as well as some more along the peritoneal lining and muscle tissue, but no significant adhesions or otherwise abnormal findings. Lower uterine segment was thin. The patient is aware that a 4th would not be recommended. However, should she become now, lower uterine segment would be of slight concern. [facility] /[id number]
[2021-03-08] MEDS: Prenatal Multivitamin with Calcium/Folic Acid/Iron Tab PO SCH (10:49)
[2021-03-08] MEDS: Simethicone 80 MG Tab.Chew PO SCH ×4 (10:49→20:28)
[2021-03-08] MEDS: Ferrous Sulfate 325 MG Tab PO SCH (10:49)
[2021-03-08] MEDS: Ketorolac 30 MG/ML SDV IVPUSH SCH ×2 (14:22→20:29)
[2021-03-08] MEDS: Docusate Sodium 100 MG Cap PO PRN (20:28)
[2021-03-09] MEDS: Ketorolac 30 MG/ML SDV IVPUSH SCH (02:30)
[2021-03-09] MEDS: Prenatal Multivitamin with Calcium/Folic Acid/Iron Tab PO SCH (08:55)
[2021-03-09] MEDS: Simethicone 80 MG Tab.Chew PO SCH ×4 (08:55→20:18)
[2021-03-09] MEDS: Ferrous Sulfate 325 MG Tab PO SCH (08:55)
[2021-03-09] MEDS ORDERED: FLUoxetine 10 MG Cap PO SCH (09:00)
--- NOTE | 2021-03-09 10:21 | PN ---
DATE: 03/09/2021 SUBJECTIVE: Postoperative day #1 status post repeat low transverse section in a 3, now para 3-0-0-3 patient. She reports that she is doing well. Rbuy catheter came out this morning and she is looking forward to ambulating and being up and around more. Nurses concerned that she is not really requiring any Percocet for pain and she typically has not used much if any in the past. She has no shortness of breath. No chest pain. Passing flatus and overall feels that this has been the easiest of her so far. Incisional pain is well controlled at this time. She is and denies any acute concerns or issues. Looking forward to possible discharge home tomorrow or the following day pending clinical course. She is requesting we make sure that she has refills of her fluoxetine available for when she goes home as her pharmacy will not be open on day of discharge. OBJECTIVE: General: Well-appearing 30-year-old female. Vital Signs: Temperature is 97.4, pulse 64, blood pressure 92/54, respiratory rate of 16, O2 saturations 97% on room air. Heart: Regular without murmur. Lungs: Clear to auscultation bilaterally. Abdomen: Soft, nontender. Fundus is firm and below the umbilicus. Dressing is removed, and incision site is clean, dry, and intact. Extremities: No edema, erythema, or tenderness noted. SCDs are on. LABORATORY DATA: Hemoglobin down to 10.6 from a previous 12.5 and platelet count of 231. ASSESSMENT: 1. Status post repeat low transverse section without complications, postoperative day 1. 2. 3, para 3-0-0-3. 3. Obesity. 4. History of coronavirus disease several months ago. 5. Anxiety. 6. Blood type O negative, group B strep negative, and rubella immune. Baby's blood type is O positive, so we will also make sure that she gets her RhoGAM prior to discharge. [facility] /[id number]
[2021-03-09] MEDS: Acetaminophen 325 MG Tab PO PRN ×2 (13:15→20:17)
[2021-03-09] MEDS ORDERED: Oxytocin/Normal Saline 30 UNIT/500 ML BAG IV ONE (13:23)
[2021-03-09] MEDS ORDERED: Morphine PF 10 MG/10 ML SDV ONE (13:26)
[2021-03-09] MEDS ORDERED: Sodium Bicarbonate 4.2% 2.5 MEQ/5 ML SDV ONE (13:26)
[2021-03-09] MEDS ORDERED: Dexamethasone 4 MG/ML SDV IV ONE (13:26)
[2021-03-09] MEDS ORDERED: Promethazine 25 MG/ML SDV ONE (13:26)
[2021-03-09] MEDS ORDERED: Ketorolac 30 MG/ML SDV IVPUSH ONE (13:26)
[2021-03-09] MEDS ORDERED: Ondansetron 4 MG/2 ML SDV IV ONE (13:26)
[2021-03-09] MEDS ORDERED: Lactated Ringers 1,000 ML IV ONE (13:26)
[2021-03-09] MEDS: Ibuprofen 800 MG Tab PO PRN (17:14)
[2021-03-09] MEDS: Docusate Sodium 100 MG Cap PO PRN (20:18)
[2021-03-09] MEDS: FLUoxetine 10 MG Cap PO SCH (20:18)
[2021-03-09 23:20] VITALS: BP 110/56; PULSE 77
[2021-03-10] MEDS: Ibuprofen 800 MG Tab PO PRN ×2 (03:45→12:01)
[2021-03-10] MEDS: Simethicone 80 MG Tab.Chew PO SCH ×4 (08:25→20:04)
[2021-03-10] MEDS: Ferrous Sulfate 325 MG Tab PO SCH (08:26)
[2021-03-10] MEDS: Docusate Sodium 100 MG Cap PO PRN ×2 (08:26→20:03)
[2021-03-10] MEDS: Prenatal Multivitamin with Calcium/Folic Acid/Iron Tab PO SCH (08:26)
[2021-03-10] MEDS: Acetaminophen 325 MG Tab PO PRN ×3 (08:26→17:01)
--- NOTE | 2021-03-10 11:33 | PCM.PNPP ---
- Patient Data Vital Signs - Most Recent: Last Vital Signs Temp 36.4 C 03/09/21 20:00 Pulse 77 03/09/21 20:00 Resp 16 03/09/21 20:00 BP 110/56 L 03/09/21 20:00 Pulse Ox 98 03/09/21 20:00 Weight - Most Recent: 113.398 kg Med Orders - Current: Current Medications Acetaminophen (Acetaminophen 325 Mg Tab) 650 mg PO Q6H PRN PRN Reason: Mild Pain (1-3) or Fever Last Admin: 03/10/21 08:26 Dose: 650 mg Documented by: Carboprost Tromethamine (Carboprost Tromethamine 250 Mcg/1 Ml Amp) 250 mcg IM ONETIME PRN PRN Reason: Bleeding Diphenhydramine HCl (Diphenhydramine 50 Mg/Ml Sdv) 25 mg IVPUSH Q6H PRN PRN Reason: Itching or Nausea Docusate Sodium (Docusate Sodium 100 Mg Cap) 100 mg PO Q12H PRN PRN Reason: Constipation Last Admin: 03/10/21 08:26 Dose: 100 mg Documented by: Ephedrine Sulfate (Ephedrine 50 Mg/Ml Sdv) 5 mg IVPUSH SEECOMMENT PRN PRN Reason: Other Ferrous Sulfate (Ferrous Sulfate 325 Mg Tab) 325 mg PO WITHBREAKFAST [facility] Last Admin: 03/10/21 08:26 Dose: 325 mg Documented by: Fluoxetine HCl (Fluoxetine 10 Mg Cap) 20 mg PO DAILY@2100 [facility] Last Admin: 03/09/21 20:18 Dose: 20 mg Documented by: Oxytocin/Sodium Chloride (Pitocin In Ns 30 Unit/500 Ml) 30 unit in 500 mls @ 2 mls/hr IV TITRATE FELIPE; Protocol Last Titration: 03/08/21 11:35 Dose: 0 munits/min, 0 mls/hr Documented by: Lactated Ringer's (Ringers, Lactated) 1,000 mls @ 125 mls/hr IV ASDIRECTED [facility] Last Admin: 03/08/21 19:40 Dose: 125 mls/hr Documented by: Tranexamic Acid 1,000 mg/ (Sodium Chloride) 110 mls @ 660 mls/hr IV ONETIME PRN PRN Reason: Bleeding Ibuprofen (Ibuprofen 800 Mg Tab) 800 mg PO Q8H PRN PRN Reason: Cramping Last Admin: 03/10/21 03:45 Dose: 800 mg Documented by: Methylergonovine Maleate (Methylergonovine 0.2 Mg/1 Ml Amp) 0.2 mg IM ONETIME PRN PRN Reason: Excessive Vaginal Bleeding Misoprostol (Misoprostol 400 Mcg (4 X 100 Mcg Tab)) 800 mcg RECTAL ASDIRECTED PRN PRN Reason: Excessive bleeding Naloxone HCl (Naloxone 2 Mg/2 Ml Syringe) 0.1 mg IVPUSH SEECOMMENT PRN PRN Reason: Respiratory Depression Ondansetron HCl (Ondansetron 4 Mg/2 Ml Sdv) 4 mg IVPUSH Q4H PRN PRN Reason: Nausea/Vomiting Oxycodone/Acetaminophen (Acetaminophen/Oxycodone 325-5 Mg Tab) 1 tab PO Q4H PRN PRN Reason: Pain (moderate 4-6) Oxycodone/Acetaminophen (Acetaminophen/Oxycodone 325-5 Mg Tab) 2 tab PO Q4H PRN PRN Reason: Pain (moderate 4-6) Prenat Multivit/Center Hole Reamer/Iron/Folic Ac ( Multivitamin With Calcium/Folic Acid/Iron Tab) 1 each PO DAILY [facility] Last Admin: 03/10/21 08:26 Dose: 1 each Documented by: Simethicone (Simethicone 80 Mg Tab.Chew) 160 mg PO QID [facility] Last Admin: 03/10/21 08:25 Dose: 160 mg Documented by: Sodium Chloride (Sodium Chloride 0.9% 10 Ml Syringe) 10 ml FLUSH ASDIRECTED PRN PRN Reason: Keep Vein Open Discontinued Medications Citric Acid/Sodium Citrate (Citric Acid/Sodium Citrate Solution 30 Ml Cup) 30 ml PO ONETIME ONE Stop: 03/08/21 06:01 Last Admin: 03/08/21 10:49 Dose: Not Given Documented by: Dexamethasone (Dexamethasone 4 Mg/Ml Sdv) 4 mg IV .STK-MED ONE Stop: 03/09/21 13:27 Fluoxetine HCl (Fluoxetine 10 Mg Cap) 20 mg PO DAILY [facility] Last Admin: 03/09/21 11:16 Dose: Not Given Documented by: Tranexamic Acid 1,000 mg/ (Sodium Chloride) 110 mls @ 660 mls/hr IV ONETIME PRN PRN Reason: Bleeding Cefazolin Sodium/Dextrose 2 gm (/ Premix) 50 mls @ 100 mls/hr IV ONETIME ONE Stop: 03/08/21 06:29 Last Admin: 03/08/21 07:42 Dose: 100 mls/hr Documented by: Lactated Ringer's (Ringers, Lactated) 1,000 mls @ 125 mls/hr IV ASDIRECTED [facility] Last Admin: 03/08/21 09:45 Dose: 125 mls/hr Documented by: Lactated Ringer's (Ringers, Lactated) 1,000 mls @ 500 mls/hr IV .BOLUS [facility] Cefazolin Sodium/Dextrose (Ancef 2 Gm/50 Ml) Confirm Administered Dose 50 mls @ as directed .ROUTE .STK-MED ONE Stop: 03/08/21 07:16 Oxytocin/Sodium Chloride (Pitocin In Ns 30 Unit/500 Ml) Confirm Administered Dose 60 unit in 1,000 mls @ as directed .ROUTE .STK-MED ONE Stop: 03/08/21 07:16 Oxytocin/Sodium Chloride (Pitocin In Ns 30 Unit/500 Ml) 30 unit in 500 mls @ as directed IV .STK-MED ONE Stop: 03/09/21 13:24 Lactated Ringer's (Ringers, Lactated) 1,000 mls @ as directed IV .STK-MED ONE Stop: 03/09/21 13:27 Ketorolac Tromethamine (Ketorolac 30 Mg/Ml Sdv) 15 mg IVPUSH Q6H [facility] Stop: 03/09/21 02:31 Last Admin: 03/09/21 02:30 Dose: 15 mg Documented by: Ketorolac Tromethamine (Ketorolac 30 Mg/Ml Sdv) 30 mg IVPUSH .STK-MED ONE Stop: 03/09/21 13:27 Morphine Sulfate (Morphine Pf 10 Mg/10 Ml Sdv) 0.2 mg .XX .STK-MED ONE Stop: 03/09/21 13:27 Ondansetron HCl (Ondansetron 4 Mg/2 Ml Sdv) 4 mg IV .STK-MED ONE Stop: 03/09/21 13:27 Promethazine HCl (Promethazine 25 Mg/Ml Sdv) 12.5 mg .XX .STK-MED ONE Stop: 03/09/21 13:27 Sodium Bicarbonate (Sodium Bicarbonate 4.2% 2.5 Meq/5 Ml Sdv) 0.5 meq .XX .STK- MED ONE Stop: 03/09/21 13:27 - Infant Interaction Support Person: - Recovery Exam Fundal Tone: Firm Fundal Level: At Umbilicus Fundal Placement: Midline Lochia Amount: Small Lochia Color: Brownish Perineum Description: Intact, Minimal Bruising/Swelling Episiotomy/Laceration: None Bladder Status: Voiding Urinary Elimination: Voided
--- NOTE | 2021-03-10 17:10 | PCM.DCSUM1 ---
Discharge Summary - Hospital Course Free Text/Narrative:: 31-year-old, now , POD#2 s/p rLTCS at 39w0d Diagnosis: Stroke: No - Discharge Data Discharge Date: 03/10/21 Discharge Disposition: Home, Self-Care 01 Condition: Good - Referral to Home Health Primary Care Physician: Edna Vaughn MD - Patient Summary/Data Operative Procedure(s) Performed: Repeat low transverse section Complications: None Consults: Consultations 03/08/21 07:34 Consult to Coverage Analyst [CONS] Routine Labs Pending at D/C: None Recommended Follow-up Testing/Procedures: None Planned Operative Procedure(s) after DC: None Hospital Course: See subjective section - Patient Instructions Diet: Usual Diet as Tolerated Activity: As Tolerated, No Lifting Over 20 Pounds Driving: Do Not Drive (while taking pain medication) Showering/Bathing: May Shower Wound/Incision Care: Keep Operative Site/Wound Site Clean and Dry Notify Provider of: Fever, Increased Pain, Swelling and Redness, Drainage, Nausea and/or Vomiting - Discharge Plan *PRESCRIPTION DRUG MONITORING PROGRAM REVIEWED*: No *COPY OF PRESCRIPTION DRUG MONITORING REPORT IN PATIENT ALMAZ: No Home Medications: Home Meds Vit with Ca/FA/Iron [ Plus Iron] 1 tab PO DAILY 12/05/16 [History] Ferrous Sulfate 325 mg PO BIDMEALS tablet 11/30/18 [Rx] Acetaminophen [Tylenol] 650 mg PO Q4H PRN tablet 03/10/21 [Rx] Acetaminophen/oxyCODONE [Percocet 325-5 MG] 1 tab PO Q4H PRN tablet 03/10/21 [Rx] Docusate Sodium [Colace] 100 mg PO Q12H PRN cap 03/10/21 [Rx] FLUoxetine [PROzac] 20 mg PO DAILY@2100 cap 03/10/21 [Rx] Ibuprofen [Motrin] 800 mg PO Q8H PRN tablet 03/10/21 [Rx] Referrals: Edna Rahman MD [Primary Care Provider] - (6-8 weeks for routine care) - Discharge Summary/Plan Comment DC Time >30 min.: No Discharge Summary/Plan Comment: Discharge home today. Follow-up with Dr. Montano at 6 weeks for routine cares. Prescription for Vistaril was E-scribed to [facility] in [facility]. Reasons to return to clinic or present to the ED were reviewed, and all questions were answered. - General Info Date of Service: 03/10/21 Subjective Update: Patient is doing well. Ambulating without issue. No dizziness, lightheadedness, fever or chills. Pain is well controlled with Tylenol and ibuprofen. Tolerating a general diet. Voiding without difficulty. Minimal vaginal bleeding. is going well. No concerns per patient or per nursing staff. Functional Status: Reports: Pain Controlled, Tolerating Diet, Ambulating, Urinating. Denies: New Symptoms - Review of Systems General: Reports: No Symptoms HEENT: Reports: No Symptoms Pulmonary: Reports: No Symptoms Cardiovascular: Reports: No Symptoms Gastrointestinal: Reports: No Symptoms Genitourinary: Reports: No Symptoms Musculoskeletal: Reports: No Symptoms Skin: Reports: No Symptoms Neurological: Reports: No Symptoms Psychiatric: Reports: No Symptoms - Patient Data Vitals - Most Recent: Last Vital Signs Temp 36.4 C 03/09/21 20:00 Pulse 77 03/09/21 20:00 Resp 16 03/09/21 20:00 BP 110/56 L 03/09/21 20:00 Pulse Ox 98 03/09/21 20:00 Weight - Most Recent: 113.398 kg Lab Results - Last 24 hrs: Laboratory Results - last 24 hr 03/09/21 Range/Units 06:19 Maternal Bleed Neg Med Orders - Current: Current Medications Acetaminophen (Acetaminophen 325 Mg Tab) 650 mg PO Q4H PRN PRN Reason: Mild Pain (1-3) or Fever Last Admin: 03/10/21 17:01 Dose: 650 mg Documented by: Carboprost Tromethamine (Carboprost Tromethamine 250 Mcg/1 Ml Amp) 250 mcg IM ONETIME PRN PRN Reason: Bleeding Diphenhydramine HCl (Diphenhydramine 50 Mg/Ml Sdv) 25 mg IVPUSH Q6H PRN PRN Reason: Itching or Nausea Docusate Sodium (Docusate Sodium 100 Mg Cap) 100 mg PO Q12H PRN PRN Reason: Constipation Last Admin: 03/10/21 08:26 Dose: 100 mg Documented by: Ephedrine Sulfate (Ephedrine 50 Mg/Ml Sdv) 5 mg IVPUSH SEECOMMENT PRN PRN Reason: Other Ferrous Sulfate (Ferrous Sulfate 325 Mg Tab) 325 mg PO WITHBREAKFAST [facility] Last Admin: 03/10/21 08:26 Dose: 325 mg Documented by: Fluoxetine HCl (Fluoxetine 10 Mg Cap) 20 mg PO DAILY@2100 [facility] Last Admin: 03/09/21 20:18 Dose: 20 mg Documented by: Oxytocin/Sodium Chloride (Pitocin In Ns 30 Unit/500 Ml) 30 unit in 500 mls @ 2 mls/hr IV TITRATE [facility]ELIPE; Protocol Last Titration: 03/08/21 11:35 Dose: 0 munits/min, 0 mls/hr Documented by: Lactated Ringer's (Ringers, Lactated) 1,000 mls @ 125 mls/hr IV ASDIRECTED [facility] Last Admin: 03/08/21 19:40 Dose: 125 mls/hr Documented by: Tranexamic Acid 1,000 mg/ (Sodium Chloride) 110 mls @ 660 mls/hr IV ONETIME PRN PRN Reason: Bleeding Ibuprofen (Ibuprofen 800 Mg Tab) 800 mg PO Q8H PRN PRN Reason: Cramping Last Admin: 03/10/21 12:01 Dose: 800 mg Documented by: Methylergonovine Maleate (Methylergonovine 0.2 Mg/1 Ml Amp) 0.2 mg IM ONETIME PRN PRN Reason: Excessive Vaginal Bleeding Misoprostol (Misoprostol 400 Mcg (4 X 100 Mcg Tab)) 800 mcg RECTAL ASDIRECTED PRN PRN Reason: Excessive bleeding Naloxone HCl (Naloxone 2 Mg/2 Ml Syringe) 0.1 mg IVPUSH SEECOMMENT PRN PRN Reason: Respiratory Depression Ondansetron HCl (Ondansetron 4 Mg/2 Ml Sdv) 4 mg IVPUSH Q4H PRN PRN Reason: Nausea/Vomiting Oxycodone/Acetaminophen (Acetaminophen/Oxycodone 325-5 Mg Tab) 1 tab PO Q4H PRN PRN Reason: Pain (moderate 4-6) Oxycodone/Acetaminophen (Acetaminophen/Oxycodone 325-5 Mg Tab) 2 tab PO Q4H PRN PRN Reason: Pain (moderate 4-6) Prenat Multivit/Alsey/Iron/Folic Ac ( Multivitamin With Calcium/Folic Acid/Iron Tab) 1 each PO DAILY [facility] Last Admin: 03/10/21 08:26 Dose: 1 each Documented by: Simethicone (Simethicone 80 Mg Tab.Chew) 160 mg PO QID [facility] Last Admin: 03/10/21 17:00 Dose: 160 mg Documented by: Sodium Chloride (Sodium Chloride 0.9% 10 Ml Syringe) 10 ml FLUSH ASDIRECTED PRN PRN Reason: Keep Vein Open Discontinued Medications Acetaminophen (Acetaminophen 325 Mg Tab) 650 mg PO Q6H PRN PRN Reason: Mild Pain (1-3) or Fever Last Admin: 03/10/21 08:26 Dose: 650 mg Documented by: Citric Acid/Sodium Citrate (Citric Acid/Sodium Citrate Solution 30 Ml Cup) 30 ml PO ONETIME ONE Stop: 03/08/21 06:01 Last Admin: 03/08/21 10:49 Dose: Not Given Documented by: Dexamethasone (Dexamethasone 4 Mg/Ml Sdv) 4 mg IV .STK-MED ONE Stop: 03/09/21 13:27 Fluoxetine HCl (Fluoxetine 10 Mg Cap) 20 mg PO DAILY [facility] Last Admin: 03/09/21 11:16 Dose: Not Given Documented by: Tranexamic Acid 1,000 mg/ (Sodium Chloride) 110 mls @ 660 mls/hr IV ONETIME PRN PRN Reason: Bleeding Cefazolin Sodium/Dextrose 2 gm (/ Premix) 50 mls @ 100 mls/hr IV ONETIME ONE Stop: 03/08/21 06:29 Last Admin: 03/08/21 07:42 Dose: 100 mls/hr Documented by: Lactated Ringer's (Ringers, Lactated) 1,000 mls @ 125 mls/hr IV ASDIRECTED [facility] Last Admin: 03/08/21 09:45 Dose: 125 mls/hr Documented by: Lactated Ringer's (Ringers, Lactated) 1,000 mls @ 500 mls/hr IV .BOLUS [facility] Cefazolin Sodium/Dextrose (Ancef 2 Gm/50 Ml) Confirm Administered Dose 50 mls @ as directed .ROUTE .STK-MED ONE Stop: 03/08/21 07:16 Oxytocin/Sodium Chloride (Pitocin In Ns 30 Unit/500 Ml) Confirm Administered Dose 60 unit in 1,000 mls @ as directed .ROUTE .STK-MED ONE Stop: 03/08/21 07:16 Oxytocin/Sodium Chloride (Pitocin In Ns 30 Unit/500 Ml) 30 unit in 500 mls @ as directed IV .STK-MED ONE Stop: 03/09/21 13:24 Lactated Ringer's (Ringers, Lactated) 1,000 mls @ as directed IV .STK-MED ONE Stop: 03/09/21 13:27 Ketorolac Tromethamine (Ketorolac 30 Mg/Ml Sdv) 15 mg IVPUSH Q6H [facility] Stop: 03/09/21 02:31 Last Admin: 03/09/21 02:30 Dose: 15 mg Documented by: Ketorolac Tromethamine (Ketorolac 30 Mg/Ml Sdv) 30 mg IVPUSH .STK-MED ONE Stop: 03/09/21 13:27 Morphine Sulfate (Morphine Pf 10 Mg/10 Ml Sdv) 0.2 mg .XX .STK-MED ONE Stop: 03/09/21 13:27 Ondansetron HCl (Ondansetron 4 Mg/2 Ml Sdv) 4 mg IV .STK-MED ONE Stop: 03/09/21 13:27 Promethazine HCl (Promethazine 25 Mg/Ml Sdv) 12.5 mg .XX .STK-MED ONE Stop: 03/09/21 13:27 Sodium Bicarbonate (Sodium Bicarbonate 4.2% 2.5 Meq/5 Ml Sdv) 0.5 meq .XX .STK- MED ONE Stop: 03/09/21 13:27 - Exam General: Reports: Alert, Oriented HEENT: Reports: Pupils Equal Lungs: Reports: Clear to Auscultation, Normal Respiratory Effort Cardiovascular: Reports: Regular Rate, Regular Rhythm, No Murmurs GI/Abdominal Exam: Non-Tender Extremities: Pedal Edema (1+ to feet and ankles bilaterally) Skin: Reports: Warm, Dry, Intact Wound/Incisions: Reports: Healing Well, No Drainage Psy/Mental Status: Reports: Alert, Normal Affect, Normal Mood
[2021-03-10] MEDS: FLUoxetine 10 MG Cap PO SCH (20:04)
== END 2021-03-10 20:30 | disposition home or self-care (01) | DRG 788 ==
LOC: DL.MS 05:57 → EDSTATUS 08:00
PROVIDERS: ADMIT Family Medicine; ATTEND Family Medicine
PROC: 10D00Z1 Extraction of Products of Conception, Low, Open Approach (ICD-10-PCS; principal; 2021-03-08)
DX: O34.211 Maternal care for low transverse scar from previous cesarean delivery (principal); Z37.0 Single live birth; O99.214 Obesity complicating childbirth; O99.344 Other mental disorders complicating childbirth; F41.0 Panic disorder [episodic paroxysmal anxiety]; Z20.822 Contact with and (suspected) exposure to COVID-19; Z3A.39 39 weeks gestation of pregnancy; Z86.16 Personal history of COVID-19; Z28.82 Immunization not carried out because of caregiver refusal
CPT/HCPCS: 01961; 36415; 51702; 59025; 85025; 85027; 85461; 86850; 86900; 86901; 94010; A9270-GY; J0690; J1100; J1885; J2270; J2405; J2550; J2590; J2790; J7120; U0002

== ENCOUNTER 2023-03-02 05:30 | Emergency (ER) | payer OTHER ==
[2023-03-02 05:48] VITALS: BP 126/88; PULSE 116
[2023-03-02] MEDS ORDERED: diphenhydrAMINE 50 MG/ML SDV IVPUSH ONE (06:03)
[2023-03-02 06:10] LABS: BASOPHILS PERCENT AUTO 0.6 % (0.0-1.0); EOSINOPHILS PERCENT AUTO 1.4 % (1.0-3.0); HEMATOCRIT 43.7 % (37.0-47.0); HEMOGLOBIN 14.7 g/dL (12.0-16.0); LYMPHOCYTES PERCENT AUTO 26.5 % (20.5-50.1); MEAN CORPUSCULAR HEMOGLOBIN 29.3 pg (27.0-34.0); MEAN CORPUSCULAR HGB CONC 33.6 g/dL (33.0-35.0); MEAN CORPUSCULAR VOLUME 87.2 fL (80-100); MONOCYTES PERCENT AUTO 9.1 % (2-8); NEUTROPHILS PERCENT AUTO 62.4 % (42.2-75.2); PLATELET COUNT,PLT 297 10^3/uL (150-450); RED BLOOD CELL COUNT 5.01 10^6/uL (4.2-5.4); WHITE BLOOD CELL COUNT,WBC 8.6 10^3/uL (5.0-10.0)
[2023-03-02 06:34] LABS: A/G RATIO 1.1; ANION GAP 16.7 mEq/L (7-13); BILIRUBIN TOTAL 0.4 mg/dL (0.2-1.0); BUN/CREATININE RATIO 15.3 (No establ ref range); CALCIUM 9.1 mg/dL (8.5-10.1); CREATININE 0.85 mg/dL (0.55-1.02); EST CRCL DRUG DOSING (CG) 86.29 mL/min; MAGNESIUM 1.9 mg/dL (1.8-2.4); POTASSIUM,K 3.7 mmol/L (3.5-5.1); PROTEIN TOTAL,TP 7.8 g/dL (6.4-8.2); TSH ULTRASENSITIVE 1.99 uIU/mL (0.36-3.74)
[2023-03-02] MEDS ORDERED: LORazepam 2 MG/ML SDV IVPUSH ONE (06:39)
== END 2023-03-02 08:54 | disposition home or self-care (01) ==
LOC: DL.ED 05:30
DX: F41.0 Panic disorder [episodic paroxysmal anxiety] (principal); Z98.890 Other specified postprocedural states
CPT/HCPCS: 36415; 70450; 80053; 83735; 84443; 85025; 96365; 96375; 99284; J1200; J2060; J3411; J3490